=== PATIENT | female | born 1960 | race Caucasian/White ===

== ENCOUNTER 2020-09-15 16:22 | Emergency (ER) | payer SELFPAY ==
[~2020-09-15] VITALS: Ht 152.4 cm; Wt 70.0 kg
[2020-09-15] MEDS ORDERED: MORPHINE SULFATE 4 MG/ML CPJ (NOT FOR IM USE) IV STA (17:22)
[2020-09-15] MEDS ORDERED: ONDANSETRON HCL 4MG/2ML INJ IV STA (17:22)
[2020-09-15] MEDS ORDERED: ETOMIDATE 2MG/ML 10ML VIAL IV ONE (18:15)
[2020-09-15 20:49] VITALS: BP 154/88
== END 2020-09-15 20:58 | disposition home or self-care (01) ==
LOC: ER 16:22
DX: S52.502A Unspecified fracture of the lower end of left radius, initial encounter for closed fracture (principal); I10 Essential (primary) hypertension; W01.0XXA Fall on same level from slipping, tripping and stumbling without subsequent striking against object, initial encounter; Y93.89 Activity, other specified; Y92.89 Other specified places as the place of occurrence of the external cause
CPT/HCPCS: 25605; 73100; 73110; 96374; 96375; 99152; 99285; J2270; J2405; J3490